=== PATIENT | male | born 1960 | race Caucasian/White ===

== ENCOUNTER 2017-06-12 07:15 | Inpatient (IN) | payer OTHER ==
[2017-05-24 16:12] LABS: % IMMATURE GRANULYOCYTES 0.3 % (0.0-1.1); ABSOLUTE IMMATURE GRANULOCYTES 0.02 10^3/uL (0.00-0.10); ADD DIFF? NO; ADD MORPH? NO; ADD SCAN? NO; ATYPICAL LYMPHOCYTE FLAG 20 (0-99); FRAGMENT RBC FLAG 0 (0-99); HEMATOCRIT 44.1 % (40.0-51.0); HEMOGLOBIN 15.1 g/dL (13.7-17.5); LEFT SHIFT FLG 0 (0-99); LIPEMIA HEMOLYSIS FLAG 90 (0-99); MEAN CELL HEMOGLOBIN 30.8 pg (27.9-34.1); MEAN CELL HEMOGLOBIN CONCENTR. 34.2 g/dL (32.4-36.7); MEAN PLATELET VOLUME 10.9 fL (8.7-11.7); PLATELET CLUMPS FLAG 0 (0-99); PLATELET COUNT 252 10^3/uL (150-400); RED CELL DISTRIBUTION WIDTH 12.2 % (11.5-15.2)
[2017-05-24 17:07] LABS: ANION GAP 13 mEq/L (8-16); CARBON DIOXIDE 25 mEq/l (22-31); CHLORIDE 102 mEq/L (97-110); CREATININE 0.8 mg/dL (0.7-1.3); GLOMERULAR FILTRATION RATE > 60; GLUCOSE 126 mg/dL (70-100); POTASSIUM 4.7 mEq/L (3.5-5.2); SODIUM 140 mEq/L (134-144)
--- NOTE | 2017-06-04 18:13 | GHP ---
[f rep st] PREOP HISTORY AND PHYSICAL DATE OF ADMISSION: 06/12/2017 He will be an a.m. admission for surgery for right total knee arthroplasty on June 12, 2017. HISTORY OF PRESENT ILLNESS: The patient is a 56-year-old man, admitted for a right total knee arthr oplasty. He has had a 5 to 7-year history of progressive pain in his right knee. He has had viscos upplementation injections which were minimally helpful. His pain has been quite a bit worse since he fall of 2015. His right knee is more painful than the left. He has had intermittent episodes of locking. The knee is painful in bed. It is very sore and stiff after sitting. He is using Aleve on a p.r.n. basis. His activities are now very limited. PAST MEDICAL HISTORY: He is treated for elevated cholesterol and hypertension. He also has type 2 diabetes mellitus. No history of heart disease, stents, DVT, hepatitis, or sleep apnea. He has nev er had a serious previous MRSA staph infection. CURRENT MEDICATIONS: Amlodipine 10 mg per day, atorvastatin 40 mg per day, Claritin daily, glimepir chica 4 mg per day, lisinopril 40 mg per day, metformin 1000 mg per day, omeprazole 20 mg per day. ALLERGIES: Drug allergies: None. Metal allergy: None. Latex allergy: None. SOCIAL HISTORY: The patient is . 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 He does not smoke cigarettes and occasionally drinks alcohol. FAMILY HISTORY: Positive for cancer. PHYSICAL EXAMINATION: VITAL SIGNS: Height 5 feet 10 inches, weight 215 pounds, BMI 30.8. EYES: T he conjunctivae and sclerae are clear. Pupils are round and reactive. MOUTH: Good oral hygiene. No loose teeth. CHEST: Clear. HEART: Regular rhythm, no murmurs. EXTREMITIES: Pertinent findin gs are limited to his right knee. He has a 5 degree flexion contracture and further flexion to 100 degrees. There is increased valgus alignment. His ligaments are stable. He has a moderate effusio n. IMAGING: His films show advanced degenerative arthritis in his right knee. He has severe lateral c ompartment arthritis with erosion of the lateral tibial plateau. Extensive osteophyte formation is present and he has increased valgus alignment. He has very severe medial compartment degenerative a rthritis in his left knee. IMPRESSION ON ADMISSION: 1. Right knee severe degenerative arthritis with valgus deformity. He is prepared for a right tota l knee arthroplasty. 2. Left knee degenerative arthritis primarily involving the medial compartment. 3. Treatment for elevated blood pressure. 4. Treatment for elevated cholesterol. 5. Treatment for type 2 diabetes mellitus. PLAN: He will undergo a right total knee arthroplasty. The surgery has been described to him, incl uding the risks, complications, expectations, and recovery time. I have stressed the importance of postoperative physical therapy. He understands he is going to need his left knee done in the future . All his questions have been answered, and he consents to surgery. /[id number]/MODL
[~2017-06-12 07:15] MED LIST: POVIDONE-IODINE 20 ML in SODIUM CL IRRIG SOLUTION 500 ML IRR ONE; ROPIVACAINE 0.2% 80 MG, EPINEPHrine 0.2 MG, KETOROLAC TROMETHAMINE 30 MG in BAG 0 ML IU ONE; TRANEXAMIC ACID 1,000 MG in NS 100 ML IV ONE
[2017-06-12] MEDS ORDERED: ceFAZolin 1 GM/5 ML SYR ONE (07:48)
[2017-06-12] MEDS ORDERED: VANCOMYCIN 1 GM VIAL ONE (07:48)
[2017-06-12] MEDS ORDERED: ACETAMINOPHEN 325 MG TAB PO ONE (08:29)
[2017-06-12] MEDS ORDERED: ceFAZolin 2 GM/DEXTROSE 100 ML IV ONE (08:29)
[2017-06-12] MEDS ORDERED: DEXAMETHASONE 4 MG/ML VIAL IVP ONE (08:29)
[2017-06-12] MEDS ORDERED: FAMOTIDINE 20 MG TAB PO ONE (08:29)
[2017-06-12] MEDS ORDERED: LIDOCAINE 1% 2 ML INJ ID PRN (08:32)
[2017-06-12] MEDS ORDERED: LR 1,000 ML IV ONE (08:32)
--- NOTE | 2017-06-12 09:42 | PDHPUP ---
History & Physical Update H&P update statement: This history and physical update is based on an assessment of the patient which was completed after admission or registration (within 24 hours), but prior to the surgery/procedure. H&P update: H&P reviewed & patient examined, no change in patient's condition since H&P completed
[2017-06-12] MEDS ORDERED: MIDAZOLAM 2 MG/2 ML VIAL ONE (10:20)
[2017-06-12] MEDS ORDERED: fentaNYL 100 MCG/2 ML INJ ONE ×2 (10:26→10:27)
[2017-06-12] MEDS ORDERED: PROPOFOL/EMULSION 500 MG/50 ML BOTTLE IV ONE ×2 (10:27)
[2017-06-12] MEDS ORDERED: LABETALOL HCL 50 MG/10 ML SYR IVP PRN (11:09)
[2017-06-12] MEDS ORDERED: LR 500 ML IV PRN (11:09)
[2017-06-12] MEDS ORDERED: PROMETHAZINE HCL 25 MG/ML INJ IVP PRN ×2 (11:09→12:53)
[2017-06-12] MEDS ORDERED: ONDANSETRON 4 MG/2 ML VIAL IVP PRN ×2 (11:09→12:53)
[2017-06-12] MEDS ORDERED: HYDROCODONE/APAP 5/325 TAB PO PRN (11:09)
[2017-06-12] MEDS ORDERED: NALOXONE HCL 0.4 MG/ML INJ IVP PRN (11:09)
[2017-06-12] MEDS ORDERED: METOCLOPRAMIDE 10 MG/2 ML VIAL IVP PRN ×2 (11:09→12:53)
[2017-06-12] MEDS ORDERED: fentaNYL 100 MCG/2 ML INJ IVP PRN (11:09)
[2017-06-12] MEDS ORDERED: HYDROmorphONE/DILAUDID 1 MG/ML SYR IVP PRN (11:09)
[2017-06-12] MEDS ORDERED: MEPERIDINE 25 MG/ML SYR IVP PRN (11:09)
--- NOTE | 2017-06-12 11:15 | PDANEPAE ---
ANE History of Present Illness 56 y/o male with HTN and DM for Right knee arthroplasty. No previous anesthetic problems. ANE Past Medical History - Cardiovascular History Hx Hypertension: Yes Hx Arrhythmias: No Hx Chest Pain: No Hx Coronary Artery / Peripheral Vascular Disease: No Hx CHF / Valvular Disease: No Hx Palpitations: No Cardiovascular History Comment: NO CP - Pulmonary History Hx COPD: No Hx Asthma/Reactive Airway Disease: No Hx Recent Upper Respiratory Infection: No Hx Oxygen in Use at Home: No Hx Sleep Apnea: No Sleep Apnea Screening Result - Last Documented: Negative - Neurologic History Hx Cerebrovascular Accident: No Hx Seizures: No Hx Dementia: No - Endocrine History Hx Diabetes: Yes Endocrine History Comment: DM II - Renal History Hx Renal Disorders: No - Liver History Hx Hepatic Disorders: No - Neurological & Psychiatric Hx Hx Neurological and Psychiatric Disorders: No - Cancer History Hx Cancer: No - Congenital Disorder History Hx Congenital Disorders: No - GI History Hx Gastrointestinal Disorders: Yes Gastrointestinal History Comment: ACID REFLUX - Other Health History Other Health History: NEG - Chronic Pain History Chronic Pain: Yes (PAIN SANCHO KNEES) - Surgical History Prior Surgeries: KNEE SURGERIES R & L - SCOPES ANE Review of Systems - Exercise capacity METS (RN): 4 METS ANE Patient History - Allergies Allergies/Adverse Reactions: No Known Allergies Allergy (Unverified 04/16/17 16:21) - Home Medications Home Medications: Atorvastatin Calcium [Lipitor 40 mg (*)] 40 mg PO DAILY 04/11/17 [Last Taken 3 Days Ago] Glimepiride [Amaryl] 4 mg PO DAILY 04/11/17 [Last Taken 3 Days Ago] Metformin HCl [Metformin 1000 mg] 1,000 mg PO BID 04/11/17 [Last Taken 3 Days Ago] Montelukast Sodium [Singulair 10 mg (*)] 10 mg PO DAILY@1800 04/11/17 [Last Taken 1 Week Ago] Omeprazole [Prilosec 20 mg] 20 mg PO BID 04/11/17 [Last Taken 2 Days Ago] amLODIPine BESYLATE [Amlodipine Besylate] 10 mg PO DAILY 04/11/17 [Last Taken 06:45] - NPO status NPO Since - Liquids (Date): 06/11/17 NPO Since - Liquids (Time): 19:00 NPO Since - Solids (Date): 06/11/17 NPO Since - Solids (Time): 19:00 - Smoking Hx Smoking Status: Never smoked - Family Anes Hx Family Hx Anesthesia Complications: NEG ANE Labs/Vital Signs - Labs Result Diagrams: 05/24/17 16:00 05/24/17 16:00 - Vital Signs Blood Pressure: 140/81 Heart Rate: 83 Respiratory Rate: 18 O2 Sat (%): 94 Height: 177.8 cm Weight: 95.254 kg ANE Physical Exam - Airway Mallampati Score: Class 3 Mouth exam: normal dental/mouth exam - Pulmonary Pulmonary: no respiratory distress - Cardiovascular Cardiovascular: regular rate and rhythym - ASA Status ASA Status: III ANE Anesthesia Plan Anesthesia Plan: spinal Regional Anesthesia: adductor canal FNB
--- NOTE | 2017-06-12 12:39 | POSTOPPROG ---
Post Op Note Date of Operation: 06/12/17 Surgeon: Storm Haynes Beverage Manager: Ramses Anesthesiologist: Shanna Anesthesia: IV Sedation, Spinal Post-op Diagnosis: Right knee severe degenerative arthritis with valgus deformity. Procedure: Right total knee arthroplasty. Inf/Abcess present in the surg proc area at time of surgery?: No EBL: 50-100 (Adductor canal block)
[2017-06-12] MEDS ORDERED: PHARMACY PAIN CONSULT 1 EA MISC PRN (12:53)
[2017-06-12] MEDS ORDERED: diphenhydrAMINE 25 MG CAP PO PRN (12:53)
[2017-06-12] MEDS ORDERED: oxyCODONE IR 5 MG TAB PO PRN (12:53)
[2017-06-12] MEDS ORDERED: TEMAZEPAM 15 MG CAP PO PRN (12:53)
[2017-06-12] MEDS ORDERED: PROMETHAZINE HCL 25 MG SUPPR PR PRN (12:53)
[2017-06-12] MEDS ORDERED: DIPHENOXYLATE/ATROPINE LOMOTIL 1 TAB PO PRN (12:53)
[2017-06-12] MEDS ORDERED: traMADol 50 MG TAB PO PRN (12:53)
[2017-06-12] MEDS ORDERED: NS 500 ML IV PRN (12:53)
[2017-06-12] MEDS ORDERED: ONDANSETRON DISINTEGRATING 4 MG TAB PO PRN (12:53)
[2017-06-12] MEDS ORDERED: CYCLOBENZAPRINE 10 MG TAB PO PRN (12:53)
[2017-06-12] MEDS ORDERED: BISACODYL 10 MG SUPP PR PRN (12:53)
[2017-06-12] MEDS ORDERED: LACTULOSE 20 GM/30 ML UDCUP PO PRN (12:53)
[2017-06-12] MEDS ORDERED: KETOROLAC 30 MG/1 ML SDV IVP PRN (12:53)
[2017-06-12] MEDS ORDERED: POLYETHYLENE GLYCOL 3350 17 GM PKT PO PRN (12:53)
[2017-06-12] MEDS ORDERED: MAGNESIUM HYDROXIDE 30 ML UDCUP PO PRN (12:53)
[2017-06-12] MEDS ORDERED: LR 1,000 ML IV SCH (13:00)
--- NOTE | 2017-06-12 14:06 | POSTANESTH ---
Post Anesthetic Evaluation Respiratory Status: Normal, Stable Level of Consciousness/Mental Status: Can Participate in Eval Pain Control: Adequate, Prn Tx Ordered Nausea/Vomiting Control: Adequate, Prn Tx Ordered Complications Possibly Related to Anesthesia: None Noted (Adductor Canal Block done in Pac[facility] with ultrasound, sterile technique. 17 g Touhy needle. Bupivicaine .5% 15 cc and lidocaine 2% 10 cc. Tolerated well.)
[2017-06-12] MEDS ORDERED: MONTELUKAST SODIUM 10 MG TAB PO SCH (18:00)
[2017-06-12] MEDS: ACETAMINOPHEN 325 MG TAB PO SCH ×2 (18:26→23:03)
[2017-06-12] MEDS: TRANEXAMIC ACID 650 MG TAB PO SCH (18:26)
[2017-06-12] MEDS: ceFAZolin 2 GM/DEXTROSE 100 ML IV SCH (18:27)
[2017-06-12] MEDS: SENNOSIDES/DOCUSATE SODIUM TAB PO SCH (20:03)
[2017-06-12] MEDS: FAMOTIDINE 20 MG TAB PO SCH (20:03)
[2017-06-12] MEDS: metFORMIN HCL 500 MG TAB PO SCH (20:03)
[2017-06-12] MEDS: ASPIRIN 325 MG TAB PO SCH (20:03)
--- NOTE | 2017-06-13 00:08 | GOP ---
[f rep st] OPERATIVE REPORT DATE OF OPERATION: 06/12/2017 SURGEON: Storm Haynes MD MANAGER WATER WASTEWATER: Karthik Blanca CFA. Ramo Doss, NICOLE. ANESTHESIA: A combination of Marcaine spinal, IV sedation, and adductor canal block. ANESTHESIOLOGIST: Dr. Siri Otero. PREOPERATIVE DIAGNOSIS: Right knee severe degenerative arthritis with valgus deformity. POSTOPERATIVE DIAGNOSIS: Right knee severe degenerative arthritis with valgus deformity. PROCEDURE PERFORMED: Right total knee arthroplasty, cemented, Oliveira and Nephew Journey II, posterio r stabilized. FINDINGS: DESCRIPTION OF PROCEDURE: The patient was given 2 g of preoperative IV Ancef within 60 minutes of s urgery. He also received IV tranexamic acid at a dose of 10 mg/kg. He was placed on the operating room table and given spinal anesthesia with Marcaine by Dr. Otero. He was then placed supine and g iven IV sedation. A Chavira catheter was not used. He wore a stocking and SCD on the nonoperative le g. His right lower extremity was prepped with ChloraPrep from the upper thigh tourniquet to the tip s of the toes. It was draped free using sterile sheets, stockinette, and Ioban plastic adhesive amanda pe. The lower leg was wrapped with compressive Coban. The leg was exsanguinated with elevation and a 6-inch compressive wrap, and the pneumatic tourniquet was inflated to 300 mmHg. The [employer] Organization time-out was performed to verify the correct patient identity and the correct surgical side and site. The [facility] time-out was also performed. The DeMayo leg holding device was sterilely attached to the operating room table and used throughout the procedure to help position the knee. A straight midline incision made centered on the patella. Subcutaneous tissues were sharply divided, and hemostasis was obtained using electrocautery. A medial subcutaneous flap was developed, and the capsule and synovium were opened in a medial parap atellar fashion. Very extensive degenerative changes were present in the lateral compartment. He h ad a 20-degree preoperative flexion contracture. There was a deep erosion in the lateral tibial jose teau. The medial capsule and periosteum were elevated off the rim of the medial tibial plateau all the way around to the posterior medial corner. The medial collateral ligament was only lightly rele ased. In order to improve exposure, the patella was prepared 1st. He had very extensive osteophyte format ion on his patella, particularly superiorly. These were all excised and I tried to reduce the stern la back to its anatomic size. The original thickness of the patella was measured. I cut a flat xin face on the back of the patella. It was sized for a 41 mm resurfacing component. I removed enough bone from the patella such that the remaining bone, plus the thickness of the patellar component rec reated the original thickness of the patella. The composite thickness was 24 mm. The intramedullary alignment guide system was used to set up the distal femoral cut. The distal fem ur was cut in 5 degrees of valgus. Because of the preoperative flexion contracture, I made a +4 mm cut on the distal femur. The sizing jig was used to determine proper femoral sizing. He was a true size 8. The 5-in-1 cutting block was applied, and the anterior and posterior condylar cuts and naveed mfer cuts were made. The final jig was used to remove the central portion of the distal femur to ac commodate the posterior stabilized femoral component. I was careful to determine proper rotation by referencing off Whitesides line. Each cut was checked for accuracy before and after it was made. The femur was sized for a size 8 posterior stabilized component. The trial component was tapped sec urely into place and was a good fit. Next, the tibia was prepared. The proximal tibial cut was made using the extramedullary alignment g uide system. The cut was made in a few degrees of posterior slope. I was careful to achieve proper varus/valgus alignment and proper rotation. The posterior compartment was cleared of meniscal remn ants. Large osteophytes were removed from the back of the lateral femoral condyle. I checked the f lexion extension gaps. He was tighter on the lateral side and had a narrower extension and flexion gap. I released the IT band from the lateral edge of the tibia. That was not enough, so I went ahe ad and perforated the iliotibial band in several areas to create a pie-crusting loosening of the IT band. After that, the flexion, extension gaps were equal and balanced. The tibia was a size 7. With the trial components in place, I selected an 11 mm polyethylene nutrition manager ior stabilized tibial insert. The knee came to full extension and flexed to 125 degrees. His colla teral ligaments were stable and balanced in 90 degrees of flexion and full extension. He had 1 or 2 degrees of medial flexion laxity at 90 degrees. The trial patellar button was applied, and trackin g was checked. Tracking was excellent without any digital pressure. Then, 40 mL of the joint anesthetic cocktail was injected into the posterior capsule, the periarticu lar structures, the quadriceps muscle and tendon areas, and the subcutaneous tissues along the skin edges. A second dose of IV tranexamic acid was given at a dose of 10 mg/kg. The surfaces were prepared for cementing. They were carefully cleaned with the pulsating lavage irr igation and thoroughly dried. The CarboJet device was used to blow dry the cancellous surfaces. A double batch of high viscosity methylmethacrylate cement with 2 g of powdered vancomycin added was m ixed. While it was still in a semi-liquid state, all 3 components were cemented in place. Excess c ement was removed before it hardened. The 11 mm trial tibial insert was re-tried, it was the proper thickness. The actual component was i nserted and locked into place. The knee was thoroughly irrigated 1 final time with a dilute Betadin e solution. The tourniquet was deflated. Total tourniquet time was 1 hour and 14 minutes. The vastus medialis portion of the extensor mechanism was repaired with several interrupted figure-o f-eight #2 FiberWire sutures. The capsule and synovium were closed first with multiple interrupted [id number] 0 PDS sutures, followed by running #2 barbed Ethicon Stratafix PDO suture. Subcutan eous tissues were closed with a running 0 barbed Ethicon Stratafix Monoderm suture. The skin was cl osed with a running 3-0 barbed Ethicon Stratafix Monoderm subcuticular suture. The skin edges were sealed with half-inch Steri-Strips. The wound was covered with Xeroform gauze and flat 4 x 4's, and the knee was wrapped with a Kerlix and 6-inch compressive wrap. A long-leg EFREN stocking and SCD we re applied, followed by the cooling device. The patient wore a stocking and SCD on the opposite leg during the procedure. I used a size 8 cemented Oliveira and Nephew Oxinium posterior stabilized femoral component, size 7 ethel ented tibial base plate, an 11 mm posterior stabilized tibial insert and a 41 mm cemented round all- polyethylene resurfacing patellar component. The estimated blood loss following deflation of tourniquet was about 100 mL. The sponge and needle counts were correct on 2 occasions. He was awakened from anesthesia, [facility] and taken to PACU in satisfactor y condition. There were no recognized intraoperative complications. In the PACU, for additional po stoperative pain control, Dr. Otero performed an adductor canal block. The procedure was unusually difficult because of his size, the valgus deformity and the extensive os teophyte formation around the patella and in the lateral compartment. Karthik Blanca and Rodriguez Doss acted as surgical assistants. Their assistance was a medical kayla alejandra. /[id number]/MODL
[2017-06-13 03:06] VITALS: RESP 16
[2017-06-13] MEDS: ceFAZolin 2 GM/DEXTROSE 100 ML IV SCH (03:06)
[2017-06-13] MEDS: TRANEXAMIC ACID 650 MG TAB PO SCH ×2 (03:06→11:31)
[2017-06-13 05:05] LABS: HEMATOCRIT 37.3 % (40.0-51.0); HEMOGLOBIN 12.7 g/dL (13.7-17.5)
[2017-06-13] MEDS: ACETAMINOPHEN 325 MG TAB PO SCH ×2 (05:48→11:31)
[2017-06-13 07:18] VITALS: BP 105/70; PULSE 64; TEMP 98.1; O2SAT 96
[2017-06-13] MEDS ORDERED: GLIMEPIRIDE 2 MG TAB PO SCH (09:00)
[2017-06-13] MEDS ORDERED: ATORVASTATIN CALCIUM 40 MG TAB PO SCH (09:00)
[2017-06-13] MEDS: SENNOSIDES/DOCUSATE SODIUM TAB PO SCH (09:15)
[2017-06-13] MEDS: metFORMIN HCL 500 MG TAB PO SCH (09:15)
[2017-06-13] MEDS: FAMOTIDINE 20 MG TAB PO SCH (09:15)
[2017-06-13] MEDS: ASPIRIN 325 MG TAB PO SCH (09:16)
--- NOTE | 2017-06-13 10:16 | SOAPPROG ---
SOAP Progress Note Assessment/Plan: Assessment: Afebrile. Awake and alert. Moderate pain. Patient has already walked in the huff an completed stair instruction with physical therapy. His dressing is dry. Moderate knee swelling. H&H were good. Films look good. Plan: Patient will have dressing change today with application of a waterproof dressing. He will also get a standing full-length x-ray. Discharged later today. 06/13/17 10:15 Objective: Vital Signs Temp Pulse Resp BP Pulse Ox 36.7 C 64 16 105/70 96 06/13/17 07:17 06/13/17 07:17 06/13/17 07:17 06/13/17 09:16 06/13/17 07:17 Laboratory Results 06/13/17 04:37 05/24/17 16:00 06/12/17 06/13/17 06/14/17 05:59 05:59 05:59 Intake Total 2805 Output Total 1540 Balance 1265 ICD10 Worksheet Patient Problems: Problems Problem Status Onset Osteoarthritis of right knee Acute
--- NOTE | 2017-06-13 20:36 | GDS ---
[f rep st] DISCHARGE SUMMARY ADMISSION DIAGNOSIS: Right knee severe degenerative arthritis. DISCHARGE DIAGNOSIS: Right knee severe degenerative arthritis. OPERATIONS PERFORMED: June 12, 2017, a right total knee arthroplasty. POSTOPERATIVE COMPLICATIONS: None. CONDITION ON DISCHARGE: Improved. DESCRIPTION OF HOSPITAL COURSE: The patient was admitted to the hospital on the morning of surgery. His admission CBC, electrolytes, BUN, and creatinine were normal. The same day, under a combinati on of Marcaine, spinal anesthesia, IV sedation, and an adductor canal block, he underwent a right to hema knee arthroplasty. Postoperatively, he was treated with multimodal DVT prophylaxis. On the postoperative day his hemoglobin and hematocrit were 12.7 and 37.3. He was seen by Test Tube Maker jin and made excellent progress with ambulation and stairs. By the time of discharge, he was afebri le, he had 90 degrees of knee flexion and he was independent walking. DISPOSITION: The patient discharged to his home. Continue aspirin 325 mg daily for 21 days. He ma y progress to full weightbearing on the right as tolerated. He will go to outpatient physical [facility]. I will see him back in the office on June 29, 2017. Continue EFREN stockings for 1 week. If th ere any problems, he is to call me at the office. /[id number]/MODL
== END 2017-06-13 14:26 | disposition home or self-care (01) | DRG 470 ==
LOC: F3N 08:16
PROVIDERS: ADMIT Orthopaedic Surgery; ATTEND Orthopaedic Surgery
PROC: 0SRC0J9 Replacement of Right Knee Joint with Synthetic Substitute, Cemented, Open Approach (ICD-10-PCS; principal; 2017-06-12 10:00)
DX: M17.31 Unilateral post-traumatic osteoarthritis, right knee (principal); E11.9 Type 2 diabetes mellitus without complications; E78.00 Pure hypercholesterolemia, unspecified; I10 Essential (primary) hypertension
CPT/HCPCS: 97110-GP; 97116-GP; 97161-GP; 97165-GO; C1713; J0171; J0690; J1100; J1885; J2250; J2704; J2795; J3010; J3370

== ENCOUNTER → 2019-03-27 | Outpatient (CLI) | payer OTHER | LOC: CIMAGING 15:46 | PROVIDERS: ATTEND Internal Medicine | DX: R05 Cough (principal) | CPT/HCPCS: 71046-PO ==

== ENCOUNTER → 2019-04-09 | Outpatient (CLI) | payer OTHER | LOC: FIMAGING 07:47 | PROVIDERS: ATTEND Internal Medicine | DX: E11.9 Type 2 diabetes mellitus without complications (principal); E55.9 Vitamin D deficiency, unspecified; E78.00 Pure hypercholesterolemia, unspecified; K21.9 Gastro-esophageal reflux disease without esophagitis; N40.0 Benign prostatic hyperplasia without lower urinary tract symptoms; R13.10 Dysphagia, unspecified ==